=== PATIENT | female | born 1935 | race Caucasian/White ===

== ENCOUNTER 2018-04-01 12:19 | Emergency (ER) | payer MEDICARE, BC ==
[2018-04-01 12:19] VITALS: BMI 25.7
[2018-04-01 12:22] VITALS: BP 133/91; PULSE 98; RESP 19; TEMP 97.9; O2SAT 97
[2018-04-01 13:16] LABS: BASO # 0.1 K/uL (0.0-0.2); BASO % 0.6 % (0.0-2.0); EOS # 0.1 K/uL (0.0-0.7); EOS % 0.8 % (0.0-4.0); HEMOGLOBIN 13.5 g/dL (12.0-16.0); LYMPH # 2.2 K/uL (1.0-4.3); LYMPH % 25.7 % (20.0-40.0); MEAN CORPUSCULAR HEMOGLOBIN 28.1 pg (27.0-31.0); MEAN CORPUSCULAR HGB CONC 33.4 g/dL (33.0-37.0); MEAN PLATELET VOLUME 9.6 fl (7.2-11.7); MONO # 0.5 K/uL (0.0-0.8); MONO % 5.4 % (0.0-10.0); NEUT # 5.8 K/uL (1.8-7.0); NEUT % 67.5 % (50.0-75.0); NRBC % 0.1 % (0.0-0.0); RBC 4.79 Mil/uL (3.80-5.20); RED CELL DISTRIBUTION WIDTH 14.7 % (11.5-14.5); WHITE BLOOD COUNT 8.7 K/uL (4.8-10.8)
--- NOTE | 2018-04-01 13:17 | CT ---
Date of service: 04/01/2018 PROCEDURE: CT HEAD WITHOUT CONTRAST. HISTORY: r/o ICH COMPARISON: Not available TECHNIQUE: Axial computed tomography images were obtained through the head/brain without intravenous contrast. Radiation dose: Total exam DLP = 808.49 mGy-cm. This CT exam was performed using one or more of the following dose reduction techniques: Automated exposure control, adjustment of the mA and/or kV according to patient size, and/or use of iterative reconstruction technique. FINDINGS: HEMORRHAGE: No intracranial hemorrhage. BRAIN: No mass effect or edema. Mild age-appropriate diffuse atrophy. Minimal chronic periventricular white matter ischemic change. No evidence of acute infarct. VENTRICLES: Unremarkable. No hydrocephalus. CALVARIUM: Unremarkable. PARANASAL SINUSES: Unremarkable as visualized. No significant inflammatory changes. MASTOID AIR CELLS: Unremarkable as visualized. No inflammatory changes. OTHER FINDINGS: None. IMPRESSION: No intracranial hemorrhage. No intracranial mass or evidence of acute infarct. Age related involutional change.
[2018-04-01 13:48] LABS: INR 1.2
[2018-04-01 14:01] LABS: ALB/GLOB RATIO 1.4 (1.0-2.1); ALBUMIN 4.6 g/dL (3.5-5.0); BLOOD UREA NITROGEN 21 mg/dl (7-17); CALCIUM 9.9 mg/dL (8.4-10.2); GFR NON-AFRICAN AMERICAN > 60
[2018-04-01 14:03] LABS: ALT/SGPT 30 U/L (9-52); AST/SGOT 30 U/L (14-36)
--- NOTE | 2018-04-01 14:11 | CT ---
Date of service: 04/01/2018 PROCEDURE: CT Cervical Spine without contrast HISTORY: trauma r/o fx COMPARISON: None available. TECHNIQUE: Axial computed tomography images were obtained of the cervical spine without the use of intravenous contrast. Coronal and sagittal reformatted images were created and reviewed. Radiation dose: Total exam DLP = 322.47 mGy-cm. This CT exam was performed using one or more of the following dose reduction techniques: Automated exposure control, adjustment of the mA and/or kV according to patient size, and/or use of iterative reconstruction technique. FINDINGS: VERTEBRAE: The vertebral bodies are maintained in height. There is grade 1 retrolisthesis at C 5-6, likely degenerative in origin. Normal alignment is maintained elsewhere.. There is straightening of the normal lordotic curvature of the cervical spine indicating possible muscular spasm. The atlantoaxial articulation and odontoid process are intact. DISCS/SPINAL CANAL/NEURAL FORAMINA: There is narrowing of the C4-5, C5-6 and C6-7 intervertebral disc spaces, more pronounced at C5-6 and C6-7, consistent with degenerative disc disease. The remaining disc spaces are maintained in height. Discs heights are grossly preserved. There is diffuse disc bulge at C5-6. There is mild spinal stenosis at C5-6. There is bilateral neural foraminal stenosis at C5-6. There is multilevel neural foraminal stenosis seen bilaterally at multiple additional levels. There is no evidence of focal disc herniation. PARASPINAL SOFT TISSUES: Unremarkable. OTHER FINDINGS: None. IMPRESSION: No acute fracture. Grade 1 retrolisthesis C5-6. Degenerative disc disease C4-5 through C6-7. Spinal stenosis at C5-6. Multilevel bilateral neural foraminal stenosis.
[2018-04-01 14:21] LABS: PARTIAL THROMBOPLASTIN TIME 33.9 Seconds (25.6-37.1); PROTHROMBIN TIME 13.2 Seconds (9.8-13.1)
--- NOTE | 2018-04-01 14:53 | ED PDOC ---
HPI: Trauma/Fall - HPI Time Seen by Provider: 04/01/18 12:38 Chief Complaint (Nursing): Trauma Chief Complaint (Provider): Trauma History Per: Patient History/Exam Limitations: no limitations Onset/Duration Of Symptoms: Sudden Onset Injury Occurred (Timing): Just Before Arrival Additional Complaint(s): 82 year old female with pmHx of HTN and neuropathy to bilateral feet, arrives to ED via EMS for an evaluation of a fall type injury prior to arrival. Patient states she was doing garden work when she lost her balance secondary to chronic neuropathy then fell forward, striking her face onto the ground. She had an episode of epistaxis on site which resolved spontaneously. She has been able to ambulate on her own since onset. Patient denies any LOC, headache, back pain, hip pain, or Aspirin use. PCP: Dr. Jermaine Stratton Past Medical History Reviewed: Historical Data, Nursing Documentation, Vital Signs Vital Signs: Last Vital Signs Temp 97.9 F 04/01/18 12:22 Pulse 98 H 04/01/18 12:22 Resp 19 04/01/18 12:22 BP 133/91 H 04/01/18 12:22 Pulse Ox 97 04/01/18 12:22 - Medical History PMH: Arthritis, HTN Denies: Chronic Kidney Disease Other PMH: chronic neuropathy of lower extremities - Family History Family History: States: Unknown Family Hx - Home Medications Home Medications: Ambulatory Orders Medication Instructions Recorded Acetaminophen [Tylenol 325mg tab] 650 mg PO Q4 PRN 10/28/15 Aspirin [Aspirin EC] 325 mg PO DAILY 10/28/15 Calcium Carbonate/Vitamin D3 1 tab PO DAILY 10/28/15 [Os-Saw 500-Vit D3 200 Caplet] Celecoxib [celeBREX] 200 mg PO DAILY 10/28/15 Cholecalciferol (Vitamin D3) 2,000 unit PO DAILY 10/28/15 [Vitamin D3] Pantoprazole [Protonix EC Tab] 40 mg PO DAILY 10/28/15 amLODIPine [Norvasc] 5 mg PO DAILY 10/28/15 Ferrous Sulfate [Feosol] 325 mg PO BID #0 tab 11/07/15 Ibuprofen [Motrin Tab] 600 mg PO Q6 PRN #15 tab 04/01/18 - Allergies Allergies/Adverse Reactions: Allergies Allergy/AdvReac Type Severity Reaction Status Date / Time No Known Allergies Allergy Verified 04/01/18 12:25 Review of Systems ROS Statement: Except As Marked, All Systems Reviewed And Found Negative ENT: Positive for: Nose Pain. Negative for: Nose Discharge (epistaxis resolved) Musculoskeletal: Negative for: Back Pain, Other (hip pain) Neurological: Positive for: Numbness (chronic; right > left lower extremities), Incoordination (chronic inbalanceness). Negative for: Headache, Other (LOC) Physical Exam - Reviewed Nursing Documentation Reviewed: Yes Vital Signs Reviewed: Yes - Physical Exam Appears: Positive for: No Acute Distress Head Exam: Positive for: ATRAUMATIC, NORMAL INSPECTION, NORMOCEPHALIC Skin: Positive for: Normal Color Eye Exam: Positive for: Normal appearance, EOMI, PERRL. Negative for: Periorbital tenderness (bilaterally) ENT: Positive for: Other (small abrasion to nasal bridge; dried blood noted to left nare) Neck: Positive for: Normal, Painless ROM, Supple Cardiovascular/Chest: Positive for: Regular Rate, Rhythm, Chest Non Tender Respiratory: Positive for: Normal Breath Sounds. Negative for: Respiratory Di stress Gastrointestinal/Abdominal: Positive for: Normal Exam, Soft. Negative for: Tenderness Back: Positive for: Normal Inspection. Negative for: Vertebral Tenderness, Decreased ROM Extremity: Positive for: Normal ROM (upper/lower/hip bilaterally). 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 Negative for: Motor/Sensory Deficits, Aphasia - Laboratory Results Result Diagrams: 04/01/18 13:10 04/01/18 13:10 - ECG O2 Sat by Pulse Oximetry: 97 (RA) Pulse Ox Interpretation: Normal Medical Decision Making Medical Decision Making: Initial Impression: Fall type injury Initial Plan: * CT C-spine without contrast * CT head without contrast * EKG * Labs Time: 1311 --CT head FINDINGS: HEMORRHAGE: No intracranial hemorrhage. BRAIN: No mass effect or edema. Mild age-appropriate diffuse atrophy. Minimal chronic periventricular white matter ischemic change. No evidence of acute infarct. VENTRICLES: Unremarkable. No hydrocephalus. CALVARIUM: Unremarkable. PARANASAL SINUSES: Unremarkable as visualized. No significant inflammatory changes. MASTOID AIR CELLS: Unremarkable as visualized. No inflammatory changes. OTHER FINDINGS: None. IMPRESSION: No intracranial hemorrhage. No intracranial mass or evidence of acute infarct. Age related involutional change. Time: 1407 --CT C-Spine FINDINGS: VERTEBRAE: The vertebral bodies are maintained in height. There is grade 1 retrolisthesis at C 5-6, likely degenerative in origin. Normal alignment is maintained elsewhere.. There is straightening of the normal lordotic curvature of the cervical spine indicating possible muscular spasm. The atlantoaxial a rticulation and odontoid process are intact. DISCS/SPINAL CANAL/NEURAL FORAMINA: There is narrowing of the C4-5, C5-6 and C6-7 intervertebral disc spaces, more pronounced at C5-6 and C6-7, consistent with degenerative disc disease. The remaining disc spaces are maintained in height. Discs heights are grossly preserved. There is diffuse disc bulge at C5-6. There is mild spinal stenosis at C5-6. There is bilateral neural foraminal stenosis at C5-6. There is multilevel neural foraminal stenosis seen bilaterally at multiple additional levels. There is no evidence of focal disc herniation. PARASPINAL SOFT TISSUES: Unremarkable. OTHER FINDINGS: None. IMPRESSION: No acute fracture. Grade 1 retrolisthesis C5-6. Degenerative disc disease C4-5 through C6-7. Spinal stenosis at C5-6. Multilevel bilateral neural foraminal stenosis. Time: 1443 --Labs reviewed: no significant clinical abnormality. Upon provider reevaluation, patient is feeling better, is medically stable, and requires no further treatment in the ED at this time. Patient will be discharged home with Rx for Motrin and advised to follow up with PCP in 1-2 days. Counseling was provided and all questions were answered regarding diagnosis. There is agreement to discharge plan. Return if symptoms persist or worsen. Clinical Impression: Head injury; Facial abrasion; Epistaxis; Neuropathy; Gait instability Scribe Attestation: Documented by Sakshi Alvarado, acting as a scribe for Billy Kaiser III, DO. Provider Scribe Attestation: All medical record entries made by the Scribe were at my direction and personally dictated by me. I have reviewed the chart and agree that the record accurately reflects my personal performance of the history, physical exam, medical decision making, and the department course for this patient. I have also personally directed, reviewed, and agree with the discharge instructions and disposition. Disposition - Clinical Impression Clinical Impression: Head injury, Facial abrasion, Epistaxis, Neuropathy, Gait instability - Patient ED Disposition Is Patient to be Admitted: No Counseled Patient/Family Regarding: Studies Performed, Diagnosis, Rx Given - Disposition Referrals: Jermaine Stratton MD [Staff Provider] - Disposition: Routine/Home Disposition Time: 14:43 Condition: STABLE Additional Instructions: Return to ER for any worse or new symptoms. Use bacitracin to wounds twice daily for 5 days. Use cane to walk. Prescriptions: Ibuprofen [Motrin Tab] 600 mg PO Q6 PRN #15 tab PRN Reason: Pain, Moderate (4-7) Instructions: Peripheral Neuropathy, Nosebleeds, Concussion, Adult (DC), Closed Head Injury Forms: [facility] (Welsh)
--- NOTE | 2018-04-02 06:58 | CARD ---
APPROVED REPORT Date of service: 04/01/2018 EKG Measurement Heart [id number] <Conclusion> Normal sinus rhythm Possible Left atrial enlargement Borderline ECG
== END 2018-04-01 15:05 | disposition home or self-care (01) ==
LOC: H.ER 12:19
DX: S09.90XA Unspecified injury of head, initial encounter (principal); S00.81XA Abrasion of other part of head, initial encounter; R04.0 Epistaxis; G62.9 Polyneuropathy, unspecified; R26.9 Unspecified abnormalities of gait and mobility; I10 Essential (primary) hypertension; Z79.82 Long term (current) use of aspirin